=== PATIENT | female | born 1995 | race African-American/Black ===

== ENCOUNTER 2018-06-10 22:08 | Emergency (ER) | payer OTHER ==
[2018-06-10 22:19] VITALS: BP 117/67; PULSE 100; TEMP 98.7; BMI 19.5
--- NOTE | 2018-06-10 22:50 | PDOC ---
History of Present Illness - General Chief Complaint: Headache Stated Complaint: headache Time Seen by Provider: 06/10/18 22:29 History Source: Patient Exam Limitations: No Limitations - History of Present Illness Initial Comments: 06/10/18 22:45 Patient is a 23 y/o female with no past medical history who presents for migraines today. She woke up today with a migraine, was able to fall back asleep but woke up again at 5 am and it has not gone away. She is due to get her period this week. She describes it as a constant pain with waves of worsening pain. She tried to take tylenol this morning and threw it up. She had three episodes of vomiting. She had migraines last summer and was given a prescription medication that helped but can't remember the name of it. The light does make the pain worse. Patient has no other complaints. Past History - Past Medical History Allergies/Adverse Reactions: Allergies Allergy/AdvReac Type Severity Reaction Status Date / Time No Known Allergies Allergy Verified 06/10/18 22:17 Home Medications: Ambulatory Orders NK [No Known Home Medication] 06/10/18 CVA: No COPD: No CHF: No Other medical history: "Stress induced migraines." - Suicide/Smoking/Psychosocial Hx Smoking History: Never smoked Review of Systems - Review of Systems Constitutional: No: Chills, Fever HEENTM: No: Eye Pain Respiratory: No: Cough, Shortness of Breath Cardiac (ROS): No: Chest Pain, Irregular Heart Rate ABD/GI: Yes: Nausea, Vomiting. No: Abdominal Distended, Diarrhea : No: Dysuria Neurological: Yes: Headache. No: Numbness, Weakness *Physical Exam - Vital Signs Last Vital Signs Temp Pulse Resp BP Pulse Ox 98.7 F 100 H 20 117/67 100 06/10/18 22:17 06/10/18 22:17 06/10/18 22:17 06/10/18 22:17 06/10/18 22:17 - Physical Exam Comments: 06/10/18 22:49 GENERAL: A&O x3 EYES: EOMI, HEART: RRR, no murmurs, rubs, or gallops LUNGS: CTAL B/L ABDOMEN: soft, non tender, no distended EXTREMITIES: no pitting edema SKIN: no rashes or ulcers ED Treatment Course - LABORATORY CBC & Chemistry Diagram: 06/10/18 23:13 06/10/18 23:13 Medical Decision Making - Medical Decision Making 06/11/18 00:02 tylenol, reglan, and fluid for headache f.u labs and urine sign out to Dr. Dia *DC/Admit/Observation/Transfer Diagnosis at time of Disposition: Migraine Qualifiers: Migraine type: unspecified Status migrainosus presence: without status migrainosus Intractability: intractable Qualified Code(s): G43.919 - Migraine, unspecified, intractable, without status migrainosus - Discharge Dispostion Disposition: HOME Condition at time of disposition: Improved - Referrals Referrals: Bridger Paz MD [Primary Care Provider] - - Patient Instructions Printed Discharge Instructions: DI for Migraine Additional Instructions: You presented to the ED for a headache. This is likely due to a migraine. We gave you medication to help with the pain. Please make an appointment to follow up with your primary care physician for management. You can take tylenol or motrin for the pain, please do not exceed the maximum dose as stated on the bottle. Return to the Emergency Department if you have dizziness, vomiting, chest pain, change in vision, worsening of the headache, or shortness of breath. - Post Discharge Activity
[2018-06-10] MEDS ORDERED: METOCLOPRAMIDE HCL INJECTION 10 MG/2 ML VIAL IVPUSH ONE (22:51)
[2018-06-10] MEDS ORDERED: SODIUM CHLORIDE 1,000 ML IV STA (22:52)
[2018-06-10] MEDS ORDERED: METOCLOPRAMIDE HCL INJECTION 10 MG/2 ML VIAL ONE (22:55)
--- NOTE | 2018-06-10 23:44 | PDOC ---
Attending Attestation - HPI HPI: 06/10/18 23:48 The patient is a 23 year old female, with no significant PMH, who presents to the emergency department today for a constant migraine. The patient states the migraine began when she woke up this morning. Patient notes associated vomiting and photophobia. Patient reports she used to get migraines last summer. Patient denies any other complaints. She states she is due for her period soon. The patient denies chest pain and shortness of breath. Denies fever, chills, diarrhea and constipation. Denies dysuria, frequency, urgency and hematuria. Allergies: NKA Social history: None reported PCP: Dr. Paz <Usha Lee - Last Filed: 06/10/18 23:48> - Resident Resident Name: Esha Alcocer - ED Attending Attestation I have performed the following: I have examined & evaluated the patient, The case was reviewed & discussed with the resident, I agree w/resident's findings & plan, Exceptions are as noted - Physicial Exam PE: 06/11/18 00:39 awake alert lungs clear bilaterally heart rrr no mrg abd soft nt nd ext wwp no eedema. no calf tenderness. skin warm and dry. nuero alert oriented 5/5 all four ext. - Medical Decision Making 06/10/18 23:42 23 yo F with h/o migraines here with c/o headache. started 2 am, similar to prior headache.s was on prophylaxis migraine medication over summer not sure. did have n/v with headache. also c/o photphobia. no f/c no trauma. LM p4 weeks ago. no mod factors. took tylenolk, threw up afterwords. normal nuero exam. pt afebrile. will tx with fluids reglan and tylenol reassess. ucg r/o . 06/11/18 00:40 pt feel improved. will dc home with fu nuerology <Holly Mendosa - Last Filed: 06/11/18 00:40> Attestations - Attestations 06/10/18 23:49 Documentation prepared by Usha Lee, acting as medical biller for Holly Mendosa MD. <Usha Lee - Last Filed: 06/10/18 23:48>
[2018-06-10] MEDS ORDERED: ACETAMINOPHEN 1000 MG/100 ML VIAL (NON FORMULARY) IVPB ONE (23:55)
[2018-06-10 23:59] LABS: HEMATOCRIT 31.7 % (32.4-45.2); HEMOGLOBIN 10.3 GM/dL (10.7-15.3); MCH 26.8 pg (25.7-33.7); MCHC 32.6 g/dl (32.0-36.0); MEAN CELL VOLUME 82.4 fl (80-96); MEAN PLT VOLUME 8.7 fl (7.5-11.1); PLATELET COUNT 260 K/MM3 (134-434); RBC 3.85 M/mm3 (3.60-5.2); RDW 13.3 % (11.6-15.6); WHITE BLOOD COUNT 7.1 K/mm3 (4.0-10.0)
[2018-06-11] MEDS ORDERED: ACETAMINOPHEN INJECTION 100 ML IVPB ONE (00:02)
--- NOTE | 2018-06-11 00:43 | PDOC ---
*Physical Exam - Vital Signs Last Vital Signs Temp Pulse Resp BP Pulse Ox 98.7 F 100 H 20 117/67 100 06/10/18 22:17 06/10/18 22:17 06/10/18 22:17 06/10/18 22:17 06/10/18 22:17 ED Treatment Course - LABORATORY CBC & Chemistry Diagram: 06/10/18 23:13 06/10/18 23:13 - ADDITIONAL ORDERS Additional order review: Laboratory Results 06/10/18 23:44 Urine HCG, Qual Negative 06/10/18 23:13 RBC 3.85 MCV 82.4 MCHC 32.6 RDW 13.3 MPV 8.7 - Medications Given in the ED: ED Medications Discontinued Medications Generic Name Dose Route Start Last Admin Trade Name Abran PRN Reason Stop Dose Admin Acetaminophen 1,000 mg 06/10/18 23:55 06/11/18 00:02 Ofirmev Injection - IVPB 06/10/18 23:56 1,000 mg ONCE ONE Administration Sodium Chloride 1,000 mls @ 1,000 mls/hr 06/10/18 22:52 06/10/18 23:04 Normal Saline - IV 06/10/18 23:51 1,000 mls/hr ASDIR STA Administration Metoclopramide HCl 10 mg 06/10/18 22:51 06/10/18 23:04 Reglan Injection - IVPUSH 06/10/18 22:52 10 mg ONCE ONE Administration *DC/Admit/Observation/Transfer Diagnosis at time of Disposition: Migraine Qualifiers: Migraine type: unspecified Status migrainosus presence: without status migrainosus Intractability: intractable Qualified Code(s): G43.919 - Migraine, unspecified, intractable, without status migrainosus - Discharge Dispostion Disposition: HOME Condition at time of disposition: Improved - Referrals Referrals: Bridger Paz MD [Primary Care Provider] - Angel Barone MD [Staff Physician] - - Patient Instructions Printed Discharge Instructions: DI for Migraine Additional Instructions: You presented to the ED for a headache. This is likely due to a migraine. We gave you medication to help with the pain. Please make an appointment to follow up with your primary care physician for management. You were given a referral to Neurology, please follow up within 1 week. You can take tylenol or motrin for the pain, please do not exceed the maximum dose as stated on the bottle. Return to the Emergency Department if you have dizziness, vomiting, chest pain, change in vision, worsening of the headache, or shortness of breath. - Post Discharge Activity
[2018-06-11 02:20] LABS: ALBUMIN 3.4 g/dl (3.4-5.0); ALK PHOS 46 U/L (45-117); ANION GAP 3 MMOL/L (8-16); BILIRUBIN,TOTAL 0.2 mg/dL (0.2-1); BLOOD UREA NITROGEN 8 mg/dL (7-18); CALCIUM 8.5 mg/dL (8.5-10.1); CHLORIDE 109 mmol/L (98-107); CO2 25 mmol/L (21-32); CREATININE 0.7 mg/dL (0.55-1.3); GLUCOSE,RANDOM 114 mg/dL (74-106); POTASSIUM 3.9 mmol/L (3.5-5.1); SGOT/AST 9 U/L (15-37); SGPT/ALT 14 U/L (13-61); SODIUM 137 mmol/L (136-145); TOT PROT 6.6 g/dl (6.4-8.2)
== END 2018-06-11 00:46 | disposition home or self-care (01) ==
LOC: JER 22:08
PROC: 3E0337Z Introduction of Electrolytic and Water Balance Substance into Peripheral Vein, Percutaneous Approach (ICD-10-PCS; principal; 2018-06-10)
PROC: 3E033NZ Introduction of Analgesics, Hypnotics, Sedatives into Peripheral Vein, Percutaneous Approach (ICD-10-PCS; 2018-06-10)
PROC: 3E033GC Introduction of Other Therapeutic Substance into Peripheral Vein, Percutaneous Approach (ICD-10-PCS; 2018-06-10)
DX: G43.919 Migraine, unspecified, intractable, without status migrainosus (principal)
CPT/HCPCS: 36415; 80053; 84703; 85027; 99282-25; J0131; J7030